=== PATIENT | female | born 1945 | race African-American/Black ===

== ENCOUNTER 2017-05-25 01:27 | Emergency (ER) | payer OTHER ==
[~2017-05-25] VITALS: Ht 157.5 cm; Wt 80.0 kg
[2017-05-25] MEDS ORDERED: KETOROLAC 30MG/ML VIAL IV ONE (01:45)
[2017-05-25] MEDS ORDERED: ONDANSETRON 4MG ODT PO ONE (01:45)
[2017-05-25 03:06] VITALS: BP 145/77
[2017-05-25] MEDS ORDERED: HYDROCODONE/ACETAMINOPHEN 5/325MG TABLET PO ONE (03:15)
== END 2017-05-26 14:26 | disposition home or self-care (01) ==
LOC: ER 01:27
DX: S83.91XA Sprain of unspecified site of right knee, initial encounter (principal); M25.562 Pain in left knee; I10 Essential (primary) hypertension; W18.39XA Other fall on same level, initial encounter; Y93.E1 Activity, personal bathing and showering; Y92.091 Bathroom in other non-institutional residence as the place of occurrence of the external cause; E78.00 Pure hypercholesterolemia, unspecified
CPT/HCPCS: 73562; 96374; 99284; J1885; L1830; Q0162